=== PATIENT | female | born 1965 | race African-American/Black ===

== ENCOUNTER 2017-11-14 12:55 | Emergency (ER) | payer MEDICARE ==
[~2017-11-14] VITALS: Ht 157.5 cm; Wt 91.4 kg
[~2017-11-14 12:55] MED LIST: AMITRIPTYLINE25 MG PO; CORDROL20 MG PO; DOXYCYCLINE20 MG PO; GUAIFEN AC 10120 ML PO; LOVASTATIN10 MG PO; ULTRAM 50MG TAB50 MG PO; ZITHROMAX250 M1 PO
[2017-11-14 12:58] VITALS: BP 175/83; PULSE 89; TEMP 97.6
[2017-11-14] MEDS ORDERED: DOXYCYCLINE 10100 MG PO (14:40)
[2017-11-14] MEDS ORDERED: PREDNISONE20 MG PO (14:40)
== END 2017-11-14 14:58 | disposition home or self-care (01) ==
LOC: COL.ER 12:55
DX: J20.9 Acute bronchitis, unspecified (principal); J44.9 Chronic obstructive pulmonary disease, unspecified; I10 Essential (primary) hypertension; F17.210 Nicotine dependence, cigarettes, uncomplicated; Z98.890 Other specified postprocedural states
CPT/HCPCS: J7512

== ENCOUNTER 2019-07-24 14:39 | Emergency (ER) | payer MEDICARE, OTHER ==
[~2019-07-24] VITALS: Ht 157.5 cm; Wt 86.4 kg
[~2019-07-24 14:39] MED LIST changes: +DOXYCYCLINE 10100 MG PO; +PREDNISONE20 MG PO
[2019-07-24 14:59] VITALS: TEMP 98.7
[2019-07-24 15:34] LABS: STREP SCREEN NEGATIVE
[2019-07-24] MEDS ORDERED: TEMOVATE50TS TOP (15:40)
[2019-07-24 16:01] VITALS: BP 156/95; PULSE 80
== END 2019-07-24 16:01 | disposition home or self-care (01) ==
LOC: COL.ER 14:39
PROVIDERS: Nurse Practitioner Primary Care
DX: L21.9 Seborrheic dermatitis, unspecified (principal); J03.90 Acute tonsillitis, unspecified; I10 Essential (primary) hypertension; F17.210 Nicotine dependence, cigarettes, uncomplicated; E78.5 Hyperlipidemia, unspecified

== ENCOUNTER 2019-08-02 21:23 | Emergency (ER) | payer MEDICARE, OTHER ==
[~2019-08-02] VITALS: Ht 157.5 cm; Wt 85.0 kg
[~2019-08-02 21:23] MED LIST changes: +TEMOVATE50TS TOP
[2019-08-02 21:29] VITALS: BP 149/86; TEMP 98.3
[2019-08-02] MEDS ORDERED: CEPHALEXIN500 M1 PO (21:56)
[2019-08-02 22:13] VITALS: PULSE 75
== END 2019-08-02 22:11 | disposition home or self-care (01) ==
LOC: COL.ER 21:23
DX: L98.9 Disorder of the skin and subcutaneous tissue, unspecified (principal); I10 Essential (primary) hypertension; E78.5 Hyperlipidemia, unspecified; J45.909 Unspecified asthma, uncomplicated; F17.210 Nicotine dependence, cigarettes, uncomplicated

== ENCOUNTER 2019-09-02 06:52 | Emergency (ER) | payer MEDICARE ==
[~2019-09-02] VITALS: Ht 157.5 cm; Wt 89.1 kg
[~2019-09-02 06:52] MED LIST changes: +CEPHALEXIN500 M1 PO
[2019-09-02 06:56] VITALS: TEMP 97.1
[2019-09-02] MEDS ORDERED: DIFLUCAN150 MG PO (07:27)
[2019-09-02] MEDS ORDERED: SELSUN 120 ML120 ML TOP (07:27)
[2019-09-02 07:42] LABS: BASO # 0.1 (0.0-0.2); BASO % 0.8 % (0.0-2.0); EOS # 0.3 (0.0-0.7); EOS % 2.5 % (0-4.0); GRAN # 7.8 (1.4-6.5); HEMOGLOBIN 11.9 g/dl (12.5-16.0); LYMPH # 2.1 (1.2-3.4); MEAN CELL VOLUME 84 fl (80.0-100.0); MEAN CORPUSCULAR HEMOGLOBIN 28 pg (27.0-31.0); MEAN CORPUSCULAR HGB CONC 33 g/dl (33.0-37.0); MEAN PLATELET VOLUME 8.6 fl (7.4-10.4); MONO # 0.9 (0.1-0.6); MONO % 8.3 % (1.7-9.3); PLATELET COUNT 338 K/mm3 (130-400); RED BLOOD COUNT 4.33 M/mm3 (4.10-5.30); REDCELL DISTRIBUTION WIDTH-CV 14.8 % (11.5-14.5)
[2019-09-02 07:46] LABS: HEMATOCRIT 36.5 % (37.0-47.0)
[2019-09-02 07:52] LABS: ALBUMIN 4.1 gm/dL (3.5-5.0); BILIRUBIN,TOTAL 0.5 mg/dL (0.0-1.0); CREATININE, serum 0.75 (0.52-1.25); POTASSIUM 3.6 mmol/L (3.4-5.0); TOTAL PROTEIN 7.4 gm/dL (6.4-8.2)
[2019-09-02] MEDS ORDERED: NEXIUM 20MG20 MG PO (08:15)
[2019-09-02] MEDS ORDERED: NORVASC 5MG5 MG/TAB PO (08:15)
[2019-09-02] MEDS ORDERED: HCTZ 25MG TAB25 MG PO (08:15)
[2019-09-02 08:39] VITALS: BP 152/95; PULSE 70
== END 2019-09-02 08:39 | disposition home or self-care (01) ==
LOC: COL.ER 06:52
PROVIDERS: Emergency Medicine
DX: R10.13 Epigastric pain (principal); I10 Essential (primary) hypertension; B35.0 Tinea barbae and tinea capitis

== ENCOUNTER 2020-04-01 01:09 | Emergency (ER) | payer MEDICARE ==
[~2020-04-01] VITALS: Ht 157.5 cm; Wt 87.3 kg
[~2020-04-01 01:09] MED LIST changes: +AMOXICILLIN 8751 TAB PO; +DIFLUCAN150 MG PO; +HCTZ 25MG TAB25 MG PO; +NEXIUM 20MG20 MG PO; +NORVASC 5MG5 MG/TAB PO; +SELSUN 120 ML120 ML TOP
[2020-04-01] MEDS ORDERED: CEPHALEXIN500 M1 PO (01:28)
[2020-04-01 01:33] VITALS: BP 168/89; PULSE 66; TEMP 98
== END 2020-04-01 01:44 | disposition home or self-care (01) ==
LOC: COL.ER 01:09
DX: L73.9 Follicular disorder, unspecified (principal); I10 Essential (primary) hypertension

== ENCOUNTER 2020-04-26 00:18 | Emergency (ER) | payer MEDICARE ==
[~2020-04-26] VITALS: Ht 157.5 cm; Wt 85.0 kg
[2020-04-26] MEDS ORDERED: CIPRODEX OT (00:45)
[2020-04-26 01:12] VITALS: BP 145/82; PULSE 68; TEMP 98.3
== END 2020-04-26 01:20 | disposition home or self-care (01) ==
LOC: COL.ER 00:18
DX: H60.92 Unspecified otitis externa, left ear (principal); I10 Essential (primary) hypertension; F17.210 Nicotine dependence, cigarettes, uncomplicated

== ENCOUNTER 2020-10-20 06:12 | Emergency (ER) | payer MEDICARE ==
[~2020-10-20] VITALS: Ht 157.5 cm; Wt 80.9 kg
[~2020-10-20 06:12] MED LIST changes: +CIPRODEX OT
[2020-10-20 06:18] VITALS: BP 147/92; TEMP 97.6
[2020-10-20] MEDS ORDERED: MEDROL 4MG DOSPA4 MG PO (06:55)
[2020-10-20 07:09] VITALS: PULSE 78
== END 2020-10-20 07:08 | disposition home or self-care (01) ==
LOC: COL.ER 06:12
DX: M25.532 Pain in left wrist (principal); I10 Essential (primary) hypertension; F17.210 Nicotine dependence, cigarettes, uncomplicated
CPT/HCPCS: J7512

== ENCOUNTER 2020-11-15 04:21 | Emergency (ER) | payer MEDICARE ==
[~2020-11-15] VITALS: Ht 157.5 cm; Wt 80.5 kg
[~2020-11-15 04:21] MED LIST changes: +MEDROL 4MG DOSPA4 MG PO
[2020-11-15] MEDS ORDERED: MINOCYCLIN100 MG/CAP PO (04:34)
[2020-11-15 05:10] LABS: HEMATOCRIT 37.6 % (37.0-47.0); HEMOGLOBIN 12.2 g/dl (12.5-16.0); MEAN CELL VOLUME 86 fl (80.0-100.0); MEAN CORPUSCULAR HEMOGLOBIN 28 pg (27.0-31.0); MEAN CORPUSCULAR HGB CONC 32 g/dl (33.0-37.0); RED BLOOD COUNT 4.39 M/mm3 (4.10-5.30); REDCELL DISTRIBUTION WIDTH-CV 14.5 % (11.5-14.5)
[2020-11-15 05:11] LABS: EOS % 3.7 % (0-4.0); GRAN # 4.5 (1.4-6.5); GRAN % 43.7 % (42.2-75.2); LYMPH # 4.4 (1.2-3.4); MEAN PLATELET VOLUME 8.8 fl (7.4-10.4); MONO # 0.9 (0.1-0.6); MONO % 8.4 % (1.7-9.3); PLATELET COUNT 343 K/mm3 (130-400)
[2020-11-15 05:12] LABS: BASO # 0.1 (0.0-0.2); EOS # 0.4 (0.0-0.7)
[2020-11-15 05:18] LABS: ALBUMIN 3.9 gm/dL (3.5-5.0); BILIRUBIN,TOTAL 0.3 mg/dL (0.0-1.0); CALCIUM 9.1 mg/dL (8.4-10.2); CREATININE, serum 0.7 (0.52-1.25); POTASSIUM 3.5 mmol/L (3.4-5.0)
[2020-11-15 07:06] VITALS: BP 146/81; PULSE 62; TEMP 98.2
== END 2020-11-15 07:06 | disposition home or self-care (01) ==
LOC: COL.ER 04:21
PROVIDERS: Emergency Medicine
DX: T58.91XA Toxic effect of carbon monoxide from unspecified source, accidental (unintentional), initial encounter (principal); M25.532 Pain in left wrist; F17.200 Nicotine dependence, unspecified, uncomplicated; X58.XXXA Exposure to other specified factors, initial encounter; Y92.009 Unspecified place in unspecified non-institutional (private) residence as the place of occurrence of the external cause
CPT/HCPCS: J1100; J1885; J7120

== ENCOUNTER 2021-03-19 23:13 | Emergency (ER) | payer MEDICARE ==
[~2021-03-19] VITALS: Ht 157.5 cm; Wt 77.3 kg
[~2021-03-19 23:13] MED LIST changes: +MINOCYCLIN100 MG/CAP PO
[2021-03-19 23:34] VITALS: BP 174/91; PULSE 71; TEMP 96.9
== END 2021-03-20 01:28 | disposition left against medical advice (07) ==
LOC: COL.ER 23:13
DX: L29.9 Pruritus, unspecified (principal)

== ENCOUNTER 2021-03-24 22:47 | Emergency (ER) | payer MEDICARE ==
[~2021-03-24] VITALS: Ht 157.5 cm; Wt 77.7 kg
[2021-03-24 23:11] VITALS: TEMP 98.7
[2021-03-25] MEDS ORDERED: LAMISIL250 M1 PO (02:20)
[2021-03-25] MEDS ORDERED: DOXYCYCLINE 10100 MG PO (02:20)
[2021-03-25 02:45] VITALS: BP 146/70; PULSE 78
== END 2021-03-25 02:45 | disposition home or self-care (01) ==
LOC: COL.ER 22:47
DX: B35.0 Tinea barbae and tinea capitis (principal)

== ENCOUNTER 2021-06-01 17:23 | Emergency (ER) | payer MEDICARE ==
[~2021-06-01] VITALS: Ht 157.5 cm; Wt 70.0 kg
[~2021-06-01 17:23] MED LIST changes: +LAMISIL250 M1 PO
[2021-06-01 17:53] VITALS: TEMP 97.7
[2021-06-01] MEDS ORDERED: AMOXICILLIN 8751 TAB PO (19:43)
[2021-06-01 20:06] VITALS: BP 141/84; PULSE 75
== END 2021-06-01 20:06 | disposition home or self-care (01) ==
LOC: COL.ER 17:23
DX: H66.92 Otitis media, unspecified, left ear (principal); Z20.822 Contact with and (suspected) exposure to COVID-19
CPT/HCPCS: J1885

== ENCOUNTER 2021-08-30 02:33 | Emergency (ER) | payer MEDICARE, MEDICAID ==
[~2021-08-30] VITALS: Ht 157.5 cm; Wt 75.5 kg
[2021-08-30 02:50] VITALS: TEMP 98.3
[2021-08-30 04:53] LABS: BILIRUBIN,TOTAL 0.2 mg/dL (0.2-1.2); CREATININE, serum 0.67 mg/dL (0.57-1.11); POTASSIUM 4.2 mmol/L (3.5-4.5); TOTAL PROTEIN 5.4 gm/dL (6.2-8.1)
[2021-08-30] MEDS ORDERED: NORVASC 5MG5 MG/TAB PO (04:56)
[2021-08-30] MEDS ORDERED: HCTZ 25MG TAB25 MG PO (04:56)
[2021-08-30 05:25] VITALS: BP 120/77; PULSE 67
== END 2021-08-30 05:25 | disposition home or self-care (01) ==
LOC: COL.ER 02:33
PROVIDERS: Emergency Medicine
DX: R60.0 Localized edema (principal); I10 Essential (primary) hypertension; Z79.899 Other long term (current) drug therapy
CPT/HCPCS: J1940

== ENCOUNTER 2021-09-14 20:26 | Emergency (ER) | payer MEDICARE, MEDICAID ==
[~2021-09-14] VITALS: Ht 157.5 cm; Wt 72.7 kg
[2021-09-14 20:33] VITALS: TEMP 98.1
[2021-09-14 22:07] LABS: STREP SCREEN NEGATIVE
[2021-09-14 22:18] VITALS: BP 146/88; PULSE 77
== END 2021-09-14 22:18 | disposition home or self-care (01) ==
LOC: COL.ER 20:26
PROVIDERS: Nurse Practitioner Primary Care
DX: J06.9 Acute upper respiratory infection, unspecified (principal); Z20.822 Contact with and (suspected) exposure to COVID-19

== ENCOUNTER → 2021-09-29 | Outpatient (CLI) | payer MEDICARE, MEDICAID | LOC: MC.RAD 11:30 | DX: Z12.31 Encounter for screening mammogram for malignant neoplasm of breast (principal) ==

== ENCOUNTER 2021-12-02 05:31 | Emergency (ER) | payer MEDICARE, MEDICAID ==
[~2021-12-02] VITALS: Ht 157.5 cm; Wt 73.2 kg
[2021-12-02 05:48] VITALS: TEMP 98.6
[2021-12-02 06:11] LABS: STREP SCREEN NEGATIVE
[2021-12-02] MEDS ORDERED: PEN-VEE K500 MG PO (07:44)
[2021-12-02 07:56] VITALS: BP 132/90; PULSE 61
== END 2021-12-02 08:00 | disposition home or self-care (01) ==
LOC: COL.ER 05:31
PROVIDERS: Personal Emergency Response Attendant
DX: J02.8 Acute pharyngitis due to other specified organisms (principal); Z20.822 Contact with and (suspected) exposure to COVID-19